=== PATIENT | female | born 1995 | race Two or more races ===

== ENCOUNTER 2019-10-29 15:53 | Emergency (ER) | payer MEDICAID ==
[~2019-10-29] VITALS: Ht 167.6 cm; Wt 63.9 kg
[2019-10-29 16:20] VITALS: BP 110/64
--- NOTE | 2019-10-29 16:49 | NUR ---
DC EDUCATION PROVIDED, PT DEMONSTRATES UNDERSTANDING. PT AMBULATED STEADILY TO DC WITH RN
== END 2019-10-29 16:50 | disposition home or self-care (01) ==
LOC: ED 16:30
DX: B30.9 Viral conjunctivitis, unspecified (principal)
CPT/HCPCS: 99283